=== PATIENT | female | born 1970 | race Caucasian/White ===

== ENCOUNTER 2023-03-23 14:02 | Emergency (ER) | payer BC ==
[2023-03-23 14:42] LABS: Absolute Lymphocytes (CBC) 1.6 K/uL (0.7-4.9); Hematocrit 41.5 % (36.0-45.0); Lymphocytes % 18.8 % (15.3-44.8); MCV 84.3 fL (80-100); MPV 8.8 fL (7.6-11.3); RBC Red Blood Cell Count 4.92 M/uL (3.86-4.86)
[2023-03-23 15:01] LABS: Albumin 3.9 g/dL (3.4-5.0); Bilirubin Total 0.4 mg/dL (0.2-1.0); Potassium 4.2 mEq/L (3.5-5.1); Protein, Total 8.1 g/dL (6.4-8.2)
--- NOTE | 2023-03-23 15:24 | RAD REPORT ---
EXAM DESCRIPTION: CT - Stone Protocol - 03/23/2023 2:38 pm CLINICAL HISTORY: FLANK PAIN COMPARISON: No comparisons TECHNIQUE: Thin cut axial CT imaging of the abdomen and pelvis was performed without IV contrast. Mu ltiplanar reformats were generated and reviewed. All CT scans are performed using dose optimization technique as appropriate and may include automated exposure control or mA/KV adjustment according to patient size. FINDINGS: No suspicious findings in the lung bases. Mild pericardial effusion. Hypoattenuating lesion in the dome of the liver, measuring 2.2 x 2.3 centimeter, not well characteriz ed. Adrenal glands, spleen, and pancreas show no suspicious findings. Gallbladder shows mildly hyperd ense dependent sludge. No evidence of intra or extrahepatic biliary ductal dilation. Symmetric renal contour, without suspicious parenchymal findings within limits of noncontrast techniq ue. Moderate right hydronephrosis and proximal hydroureter secondary to a 6 millimeter calculus at th e upper to mid right ureter. No hydroureteronephrosis or radiopaque calculi on the left. No dilated bowel loops or bowel wall thickening. Sequelae of gastric bypass surgery. No free air, eleno e fluid or inflammatory stranding. No hernia, mass or bulky lymphadenopathy. The urinary bladder is w ithout significant finding. No suspicious bony findings. IMPRESSION: Moderate right hydroureteronephrosis secondary to a 6 millimeter calculus at the upper t o mid right ureter. Mild pericardial effusion. The findings were communicated to Asael Gutierrez on 03/23/2023 at 15:20 hours.
[2023-03-23] MEDS ORDERED: KETOROLAC 30 MG/ML INJ ONE (15:37)
[2023-03-23] MEDS ORDERED: HYDROMORPHONE HCL 1 MG/ML INJ ONE (15:37)
[2023-03-23] MEDS ORDERED: MAGNESIUM SULFATE 1 gm IVPB 1 GM/100 ML BAG IV ONE (15:37)
[2023-03-23] MEDS ORDERED: TAMSULOSIN 0.4 MG SR CAP ONE (15:37)
[2023-03-23 17:27] LABS: Urine Bilirubin NEGATIVE (Negative); Urine Blood 3+ (Negative); Urine Clarity Cloudy (Clear); Urine Color Dark Yellow (Yellow); Urine Glucose NEGATIVE (Negative); Urine Protein 2+ (Negative); Urine Urobilinogen 0.2 mg/dL (0.2-1.0)
[2023-03-23 17:28] LABS: Urine Bacteria <20 /HPF (<20); Urine Mucus 1+ /HPF (None Seen); Urine RBC >50 /HPF (None Seen)
--- NOTE | 2023-03-23 18:19 | EDPHYS ---
Physician Documentation [facility] Name: Faith Wang Age: 52 yrs Sex: Female : 1970 Arrival Date: 03/23/2023 Time: 14:02 Bed 10 Private MD: ED Physician Asael Gutierrez HPI: 03/23 14:41 This 52 yrs old Female presents to ER via Wheelchair with complaints of Abdominal Pain, kb Back Pain, Vomiting, Blood In Urine. 14:41 The patient complains of pain in the right flank. The pain radiates to the right lower kb quadrant. Onset: The symptoms/episode began/occurred just prior to arrival. Modifying factors: The symptoms are alleviated by nothing. the symptoms are aggravated by nothing. Associated signs and symptoms: Pertinent positives: hematuria, nausea, vomiting. Severity of pain: At its worst the pain was moderate severe in the emergency department the pain is unchanged. The patient has not experienced similar symptoms in the past. The patient has not recently seen a physician. 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 - Social history:: Smoking status: Patient denies any tobacco usage or history of. ROS: 14:39 Constitutional: Negative for fever, chills, and weight loss. kb 14:39 Abdomen/GI: Positive for abdominal pain, nausea and vomiting. 14:39 Back: Positive for flank pain. 14:39 : Positive for flank pain, hematuria. 14:39 All other systems are negative. Exam: 14:39 Head/Face: Normocephalic, atraumatic. ENT: Moist Mucous membranes Cardiovascular: kb Regular rate and rhythm with a normal S1 and S2. No gallops, murmurs, or rubs. No pulse deficits. Respiratory: Respirations even and unlabored. No increased work of breathing. Talking in full sentences Abdomen/GI: Soft, non-tender. No distention Skin: Warm, dry with normal turgor. Normal color. MS/ Extremity: Pulses equal, no cyanosis. Neurovascular intact. Full, normal range of motion. Neuro: Awake and alert, GCS 15, oriented to person, place, time, and situation. Moves all extremities. Normal gait. 14:39 Constitutional: The patient appears alert, awake, uncomfortable. 14:39 Back: CVA tenderness, that is moderate, is noted on the right. Vital Signs: 14:17 BP 185 / 129; Pulse 82; Resp 17; Temp 97.3; Pulse Ox 96% ; Pain 10/10; ll1 14:21 BP 202 / 96; ll1 15:21 BP 199 / 100; Pulse 68; Resp 18; Pulse Ox 96% on R/A; Pain 8/10; mb9 15:40 Pain 8/10; db 15:50 BP 163 / 89; Pulse 62; Resp 16; Pulse Ox 100% ; db 18:54 BP 128 / 69; Pulse 69; Resp 16; Pulse Ox 100% on R/A; db 14:17 Pain Scale: Adult ll1 15:21 Pain Scale: Adult mb9 15:40 Pain Scale: Adult db MDM: 14:15 Patient medically screened. kb 14:39 Differential diagnosis: appendicitis, non-specific abd pain, pancreatitis, kb Pyelonephritis, Ureterolithiasis, urinary tract infection. Data reviewed: vital signs, nurses notes. Historians other than the Patient: Spouse/Significant Other: . 17:38 ED course: Dr Scales called and voicemail left. Awaiting callback . kb 18:10 Counseling: I had a detailed discussion with the patient and/or guardian regarding: the kb historical points, exam findings, and any diagnostic results supporting the discharge/admit diagnosis, lab results, radiology results, the need for outpatient follow up, a urologist, to return to the emergency department if symptoms worsen or persist or if there are any questions or concerns that arise at home. 18:17 Management of patient was discussed with the following: Producer Assistant: caren Lopez recommends outpatient followup. 03/23 14:20 Order name: CBC with Diff; Complete Time: 14:46 kb 03/23 14:20 Order name: CMP; Complete Time: 15:04 kb 03/23 14:20 Order name: Lipase; Complete Time: 15:04 kb 03/23 14:20 Order name: Urinalysis w/ reflexes; Complete Time: 17:33 kb 03/23 14:20 Order name: CT Stone Protocol; Complete Time: 15:27 kb 03/23 14:20 Order name: IV Saline Lock; Complete Time: 14:34 kb 03/23 14:20 Order name: Labs collected and sent; Complete Time: 14:34 kb Administered Medications: 14:34 Drug: NS 0.9% IV 1000 ml Route: IV; Rate: 1 bolus; Site: left antecubital; db 15:35 Follow up: Response: No adverse reaction; IV Status: Completed infusion; IV Intake: db 1000ml 14:34 Drug: Ondansetron IVP 4 mg Route: IVP; Site: left antecubital; db 18:54 Follow up: Response: No adverse reaction db 14:34 Drug: morphine IVP or IV 4 mg Route: IVP; Infused Over: 4 mins; Site: left antecubital; db 18:54 Follow up: Response: No adverse reaction db 15:45 Drug: Flomax PO 0.4 mg Route: PO; db 18:54 Follow up: Response: No adverse reaction db 15:45 Drug: Ketorolac IVP 15 mg Route: IVP; Site: left antecubital; db 18:54 Follow up: Response: No adverse reaction db 15:45 Drug: HYDROmorphone IVP 1 mg Route: IVP; Site: left antecubital; db 18:53 Follow up: Response: No adverse reaction db 15:48 Drug: Magnesium Sulfate IVPB 1 grams Route: IVPB; Infused Over: 1 hrs; Site: left db antecubital; 16:50 Follow up: Response: No adverse reaction; IV Status: Completed infusion; IV Intake: db 100ml 18:38 Drug: traMADol PO 50 mg Route: PO; db 18:53 Follow up: Response: No adverse reaction db Disposition: 03/24 07:14 Co-signature as Attending Physician, Asael Gutierrez MD I reviewed the patient's care rn provided by the Advanced Practice Provider and agree with the diagnosis and treatment plan. Disposition Summary: 03/23/23 18:17 Discharge Ordered Location: Home kb Condition: Stable kb Diagnosis - Calculus of ureter kb Followup: kb - With: Emergency Department - When: As needed - Reason: Worsening of condition Followup: kb - With: Private Physician - When: 2 - 3 days - Reason: Recheck today's complaints, Continuance of care, Re-evaluation by your physician Followup: kb - With: Vini Scales MD - When: 2 - 3 days - Reason: Recheck today's complaints Discharge Instructions: - Discharge Summary Sheet kb - Kidney Stones, [id number] kb - Dietary Guidelines to Help Prevent Kidney Stones kb Forms: - Work release form kb - Medication Reconciliation Form kb - Thank You Letter kb - Antibiotic Education kb - Prescription Opioid Use kb Prescriptions: - ondansetron 4 mg Oral Tablet,disintegrating - take 1 tablet by ORAL route every 6 hours As needed; 12 tablet; Refills: 0, kb Product Selection Permitted - Flomax 0.4 mg Oral capsule - take 1 capsule by ORAL route daily; 10 capsule; Refills: 0, Product Selection kb Permitted - Augmentin 875-125 mg Oral Tablet - take 1 tablet by ORAL route every 12 hours for 10 days; 20 tablet; Refills: 0, kb Product Selection Permitted - Diclofenac Sodium 75 mg Oral tablet,delayed release (DR/EC) - take 1 tablet by ORAL route 2 times per day As needed; 30 tablet; Refills: 0, kb Product Selection Permitted - Tramadol 50 mg Oral Tablet - take 1 tablet by ORAL route every 8 hours as needed; 12 tablet; Refills: 0, kb Product Selection Permitted Signatures: Dispatcher [employer] ED[place] Alas, PATIENT SERVICES ASSISTANT-C PATIENT SERVICES ASSISTANT-Ckb Asael Gutierrez MD MD rn Lewis, Lynsay, RN RN ll1 Tracy Allen RN RN db
--- NOTE | 2023-03-23 18:19 | ER ---
Nurse's Notes [facility] Name: Faith Wang Age: 52 yrs Sex: Female : 1970 Arrival Date: 03/23/2023 Time: 14:02 Bed 10 Private MD: Diagnosis: Calculus of ureter Presentation: 03/23 14:17 Chief complaint: Patient states: R flank pain for 1 day. + N/V. Blood in urine today ll1 also. Coronavirus screen: Client denies travel out of the [place] in the last 14 days. At this time, the client does not indicate any symptoms associated with coronavirus-19. Ebola Screen: Patient denies travel to an Ebola-affected area in the 21 days before illness onset. Initial Sepsis Screen: Does the patient meet any 2 criteria? No. Patient's initial sepsis screen is negative. Does the patient have a suspected source of infection? Yes: Acute abdominal pain. Risk Assessment: Do you want to hurt yourself or someone else? Patient reports no desire to harm self or others. Onset of symptoms was March 23, 2023. 14:17 Method Of Arrival: Wheelchair ll1 14:17 Acuity: CLAUDE 2 ll1 Triage Assessment: 14:32 General: Appears uncomfortable, ill, Behavior is cooperative, appropriate for age, ll1 restless. Pain: Complains of pain in R flank. GI: Reports lower abdominal pain, upper abdominal pain, nausea, vomiting. : Reports pain in right flank(s), blood in urine. 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 - Social history:: Smoking status: Patient denies any tobacco usage or history of. Screenin:34 [facility] ED Fall Risk Assessment (Adult) History of falling in the last 3 months, mb9 including since admission No falls in past 3 months (0 pts) Confusion or Disorientation No (0 pts) Intoxicated or Sedated No (0 pts) Impaired Gait No (0 pts) Mobility Assist Device Used No (0 pt) Altered Elimination No (0 pt) Score/Fall Risk Level 0 - 2 = Low Risk Oriented to surroundings, Maintained a safe environment, Educated pt \T\ family on fall prevention, incl call for assistance when getting out of bed. Abuse screen: Denies threats or abuse. Nutritional screening: No deficits noted. Tuberculosis screening: No symptoms or risk factors identified. Assessment: 14:32 General: Appears uncomfortable, Behavior is crying. Pain: Complains of pain in abdomen mb9 Pain radiates to right side of back Pain currently is 10 out of 10 on a pain scale. Quality of pain is described as stabbing, throbbing, Pain began suddenly, Is continuous. Neuro: Level of Consciousness is awake, alert, obeys commands, Oriented to person, place, time, situation, Appropriate for age. Cardiovascular: Patient's skin is warm and dry. Respiratory: Airway is patent Respiratory effort is even, unlabored, Respiratory pattern is regular, symmetrical. GI: Abdomen is flat, non-distended, Bowel sounds present X 4 quads. Abd is soft Abdomen is tender to palpation in right lower quadrant Reports nausea, vomiting. : Reports bright red blood in urine that started today Denies burning with urination. EENT: No signs and/or symptoms were reported regarding the EENT system. Derm: Skin is pink, warm \T\ dry. Musculoskeletal: Range of motion: intact in all extremities. 14:34 Reassessment: pt taken to CT. mb9 15:21 Reassessment: Patient and/or family updated on plan of care and expected duration. Pain mb9 level reassessed. Patient is alert, oriented x 3, equal unlabored respirations, skin warm/dry/pink. Patient states feeling better. Patient states symptoms have improved. 16:00 Reassessment: Patient appears in no apparent distress at this time. Patient and/or db family updated on plan of care and expected duration. Pain level reassessed. Patient is alert, oriented x 3, equal unlabored respirations, skin warm/dry/pink. 17:00 Reassessment: Patient appears in no apparent distress at this time. Patient and/or db family updated on plan of care and expected duration. Pain level reassessed. Patient is alert, oriented x 3, equal unlabored respirations, skin warm/dry/pink. 18:55 Reassessment: Patient appears in no apparent distress at this time. Patient and/or db family updated on plan of care and expected duration. Pain level reassessed. Patient is alert, oriented x 3, equal unlabored respirations, skin warm/dry/pink. Patient states feeling better. Patient states symptoms have improved. Vital Signs: 14:17 BP 185 / 129; Pulse 82; Resp 17; Temp 97.3; Pulse Ox 96% ; Pain 10/10; ll1 14:21 BP 202 / 96; ll1 15:21 BP 199 / 100; Pulse 68; Resp 18; Pulse Ox 96% on R/A; Pain 8/10; mb9 15:40 Pain 8/10; db 15:50 BP 163 / 89; Pulse 62; Resp 16; Pulse Ox 100% ; db 18:54 BP 128 / 69; Pulse 69; Resp 16; Pulse Ox 100% on R/A; db 14:17 Pain Scale: Adult ll1 15:21 Pain Scale: Adult mb9 15:40 Pain Scale: Adult db ED Course: 14:03 Patient arrived in ED. rg4 14:15 [place] Palomino FNP-C [facility]. kb 14:15 Asael Gutierrez MD is Attending Physician. kb 14:19 Triage completed. ll1 14:33 Tracy Allen, RN is Primary Nurse. db 14:34 Bed in low position. Call light in reach. Side rails up X 1. Client placed on mb9 continuous cardiac and pulse oximetry monitoring. NIBP monitoring applied. 14:34 Arm band placed on. mb9 14:34 Inserted saline lock: 20 gauge in left antecubital area, using aseptic technique. Blood db collected. 14:34 No provider procedures requiring assistance completed. mb9 14:39 CT Stone Protocol In Process Unspecified. EDMS 18:19 Vini Scales MD is Referral Physician. kb 18:56 IV discontinued, intact, bleeding controlled, No redness/swelling at site. db Administered Medications: 14:34 Drug: NS 0.9% IV 1000 ml Route: IV; Rate: 1 bolus; Site: left antecubital; db 15:35 Follow up: Response: No adverse reaction; IV Status: Completed infusion; IV Intake: db 1000ml 14:34 Drug: Ondansetron IVP 4 mg Route: IVP; Site: left antecubital; db 18:54 Follow up: Response: No adverse reaction db 14:34 Drug: morphine IVP or IV 4 mg Route: IVP; Infused Over: 4 mins; Site: left antecubital; db 18:54 Follow up: Response: No adverse reaction db 15:45 Drug: Flomax PO 0.4 mg Route: PO; db 18:54 Follow up: Response: No adverse reaction db 15:45 Drug: Ketorolac IVP 15 mg Route: IVP; Site: left antecubital; db 18:54 Follow up: Response: No adverse reaction db 15:45 Drug: HYDROmorphone IVP 1 mg Route: IVP; Site: left antecubital; db 18:53 Follow up: Response: No adverse reaction db 15:48 Drug: Magnesium Sulfate IVPB 1 grams Route: IVPB; Infused Over: 1 hrs; Site: left db antecubital; 16:50 Follow up: Response: No adverse reaction; IV Status: Completed infusion; IV Intake: db 100ml 18:38 Drug: traMADol PO 50 mg Route: PO; db 18:53 Follow up: Response: No adverse reaction db Medication: 18:56 VIS not applicable for this client. db Intake: 15:35 IV: 1000ml; Total: 1000ml. db 16:50 IV: 100ml; Total: 1100ml. db Outcome: 18:17 Discharge ordered by . kb 18:55 Discharged to home ambulatory. db 18:55 Condition: stable 18:55 Discharge instructions given to patient, Instructed on discharge instructions, follow up and referral plans. Prescriptions given X 5 18:56 Patient left the ED. db Signatures: Dispatcher [employer] ED[place] Alas, KOBE CHAPMAN-Rhonda Block rg4 Dalila Patricia RN RN ll1 Tracy Allen RN Yolanda Barillas RN RN mb9 Corrections: (The following items were deleted from the chart) 15:21 14:32 : Denies burning with urination, albino mb9
[2023-03-23 19:33] VITALS: TEMP 97.3
[2023-03-23 19:37] VITALS: O2SAT 100
[2023-03-23 19:38] VITALS: BP 128/69
== END 2023-03-23 18:56 | disposition home or self-care (01) ==
LOC: ER 14:02
DX: N20.1 Calculus of ureter (principal)
CPT/HCPCS: 96365; 96361; 85025; 81001; 36415; 83690; 80053; 76377; 74176; 96375; 99284; J3475; J1170